=== PATIENT | female | born 1955 | race African-American/Black ===

== ENCOUNTER 2017-04-05 08:34 | Emergency (ER) | payer OTHER ==
--- NOTE | ~2017-04-05 | CT52 ---
[facility] A Service of [facility] RADIOLOGY TEXT RESULTS PATIENT: LUCIA LEAVITT LOCATION: [place] : 59 UNIT #: [id number] AGE: [address]: Kimmie Ulloa SEX: F ORDER DR: [id number] [facility] [address] [place], [place] [address] [id number] E MR#: [id number] Acc #: [id number] NAME: LUCIA LEAVITT : 1955 SEX: F STUDY DATE/TIME: 04/05/2017 9:27 UNIT: [facility] ROOM: STUDY DESCRIPTION: CT Cervical Spine Wo Cont Attending Physician: Kimmie Ulloa P.A.-C. Ordering Physician: Kimmie Ulloa P.A.-C. Primary Care Physician: Ap Khalil M.D. MEDICAL IMAGING REPORT This report is preliminary unless electronic signature is present EXAM cervical spine CT 04/05/2017. INDICATIONS Fell out of bed 1 week ago. Persistent right-sided neck pain since that time. TECHNIQUE Axial images were obtained through the cervical spine without contrast. Multiplanar reformats were obtained. This CT exam was performed with one or more of the following radiation dose reduction techniques: automatic exposure control, adjustment of mA and/or kV according to patient size, and iterative reconstruction. COMPARISON None FINDINGS No fracture or malalignment is seen. No significant disc bulging or herniation identified. There is no central canal or neural foraminal stenosis. IMPRESSION Negative cervical spine CT. Dictated by... Greg Reis Jr., M.D. THIS IS AN ELECTRONICALLY VERIFIED REPORT Greg Reis Jr., M.D. at 04/05/2017 3:38 PM BISIK/max [facility] A Service [facility] RADIOLOGY TEXT RESULTS PATIENT: LUCIA LEAVITT LOCATION: [facility] : 59 UNIT #: [id number] AGE: [address]: Kimmie Ulloa SEX: F ORDER DR: TD: 04/05/2017 13:12 JOB #: [id number] MEDICAL IMAGING REPORT Page 1 of 1 COPY
--- NOTE | ~2017-04-05 | CT55 ---
[facility] A Service of [facility] RADIOLOGY TEXT RESULTS PATIENT: LUCIA LEAVITT LOCATION: [facility] : 59 UNIT #: [id number] AGE: [address]: Kimmie Ulloa SEX: F ORDER DR: [id number] [facility] [address] [place], [place] [address] [id number] E MR#: [id number] Acc #: [id number] NAME: LUCIA LEAVITT : 1955 SEX: F STUDY DATE/TIME: 04/05/2017 10:30 UNIT: [facility] ROOM: STUDY DESCRIPTION: CT Chest W Con Attending Physician: Kimmie Ulloa P.A.-C. Ordering Physician: Kimmie Ulloa P.A.-C. Primary Care Physician: Ap Khalil M.D. MEDICAL IMAGING REPORT This report is preliminary unless electronic signature is present EXAM Chest CT 04/05 INDICATIONS Right-sided pain with generalized weakness since a fall 1 week ago. Right hilar fullness seen on chest x-ray today. CT was recommended. TECHNIQUE Axial images were obtained through the chest following IV contrast administration. Multiplanar reformats were obtained. No comparison chest CT. Comparison made with chest x-ray from the same day. The CT exam was performed with one or more of the following radiation dose reduction techniques: automatic exposure control, adjustment of mA and/or kV according to patient size, and iterative reconstruction. FINDINGS The heart is enlarged. There is no pleural or pericardial effusion. No adenopathy is identified. More specifically, there is no evidence of hilar mass or hilar adenopathy on either side of the chest. There is coronary artery disease. There are granulomatous calcifications in left hilar lymph nodes. There is dependent atelectasis in both lungs. The lungs are otherwise clear. The upper abdomen demonstrates bilateral adrenal gland enlargement, left greater than right. This is presumably secondary to hyperplasia. Comparison with any outside prior studies would be beneficial. Patient has an aortic stent graft. It is only partially seen. There is a right side posterolateral ninth rib fracture, mildly displaced. IMPRESSION 1. There is an acute right posterolateral minimally displaced ninth rib STS. [facility] A Service of [facility] RADIOLOGY TEXT RESULTS PATIENT: LUCIA ELAVITT LOCATION: [place] : 59 UNIT #: [id number] AGE: [address]: Kimmie Ulloa SEX: F ORDER DR: fracture. No pneumothorax. 2. No evidence of hilar mass or adenopathy. 3. The lungs are clear except for some dependent atelectasis. 4. Coronary artery disease and atherosclerotic disease. 5. Bilateral adrenal enlargement presumably due to hyperplasia. Comparison with any outside prior CTs would be beneficial. Dictated by... Greg Reis Jr., M.D. THIS IS AN ELECTRONICALLY VERIFIED REPORT Greg Reis Jr., M.D. at 04/05/2017 3:39 PM [place]ARR[place]/diana TD: 04/05/2017 15:24 JOB #: [id number] MEDICAL IMAGING REPORT Page 1 of 1 COPY
--- NOTE | ~2017-04-05 | CR211 ---
[facility] A Service of [facility] RADIOLOGY TEXT RESULTS PATIENT: LUCIA LEAVITT LOCATION: [place] : 59 UNIT #: [id number] AGE: [address]: Kimmie Ulloa SEX: F ORDER DR: [id number] [facility] [address] [place], [place] [address] [id number] P MR#: [id number] Acc #: [id number] NAME: LUCIA LEAVITT : 1955 SEX: F STUDY DATE/TIME: 04/05/2017 UNIT: [facility] ROOM: STUDY DESCRIPTION: CR Ribs Uni 2 View W PA Ch Rt Attending Physician: Kimmie Ulloa P.A.-C. Ordering Physician: Kimmie Ulloa P.A.-C. Primary Care Physician: Ap Khalil M.D. MEDICAL IMAGING REPORT This report is preliminary unless electronic signature is present EXAM Right rib series with chest 04/05/2017 09:05 hours HISTORY Patient fell 1 week ago with complaint of right rib and shoulder pain. COMPARISON Abdomen series with chest 03/25/2009 FINDINGS Upright chest film demonstrates lower lung volumes than on the prior study. Heart size at the upper limits of normal and the aorta remains tortuous. There are bilateral calcified nodes. The right hilum appears slightly more prominent than on prior chest film 03/25/2009. This could be vessels, however adenopathy or mass cannot be excluded. AP and oblique views of the right ribs demonstrate no rib lesion or rib fracture. There is no pleural effusion or pneumothorax. IMPRESSION 1. No right rib fracture, pleural effusion or pneumothorax. 2. There is mild prominence of the heart increased from 2008 with stable tortuous aorta. 3. There are underlying calcified granulomata. However, question is raised of right hilar fullness in comparison with chest film 03/25/2009. The presence of adenopathy cannot be excluded. Suggest further evaluation with chest CT with contrast if possible. Dictated by... Beth Vidal M.D. [facility] A Service of [facility] RADIOLOGY TEXT RESULTS PATIENT: LUCIA LEAVITT LOCATION: [facility] : 59 UNIT #: [id number] AGE: [address]: Kimmie Ulloa SEX: F ORDER DR: THIS IS AN ELECTRONICALLY VERIFIED REPORT Beth Vidal M.D. at 04/05/2017 2:31 PM BRIAN/diana TD: 04/05/2017 09:45 JOB #: [id number] MEDICAL IMAGING REPORT Page 1 of 1 COPY
--- NOTE | ~2017-04-05 | CR94 ---
[facility] A Service of [facility] RADIOLOGY TEXT RESULTS PATIENT: LUCIA LEAVITT LOCATION: [facility] : 59 UNIT #: [id number] AGE: [address]: Kimmie Ulloa SEX: F ORDER DR: [id number] [facility] [address] [place], [place] [address] [id number] E MR#: [id number] Acc #: [id number] NAME: LUCIA LEAVITT : 1955 SEX: F STUDY DATE/TIME: 04/05/2017 09:09 UNIT: [facility] ROOM: STUDY DESCRIPTION: CR Elbow Min 3 Views Rt Attending Physician: Kimmie Ulloa P.A.-C. Ordering Physician: Kimmie Ulloa P.A.-C. Primary Care Physician: Ap Khalil M.D. MEDICAL IMAGING REPORT This report is preliminary unless electronic signature is present EXAM Right elbow 3 views 04/05/2017 0909 hours HISTORY Patient fell 1 week ago with elbow pain for 1 week. COMPARISON None. FINDINGS AP, lateral and oblique views demonstrate no joint effusion or fracture. IMPRESSION Negative right elbow. Dictated by... Beth Vidal M.D. THIS IS AN ELECTRONICALLY VERIFIED REPORT Beth Vidal M.D. at 04/05/2017 2:31 PM BRIAN/liliana TD: 04/05/2017 10:00 JOB #: [id number] MEDICAL IMAGING REPORT Page 1 of 1 COPY
--- NOTE | ~2017-04-05 | CT71 ---
[facility] A Service of [facility] RADIOLOGY TEXT RESULTS PATIENT: LUCIA LEAVITT LOCATION: [facility] : 59 UNIT #: [id number] AGE: [address]: Kimmie Ulloa SEX: F ORDER DR: [id number] [facility] [address] [place], [place] [address] [id number] E MR#: [id number] Acc #: [id number] NAME: LUCIA LEAVITT : 1955 SEX: F STUDY DATE/TIME: 04/05/2017 9:27 UNIT: [facility] ROOM: STUDY DESCRIPTION: CT Head Wo Contrast Attending Physician: Kimmie Ulloa P.A.-C. Ordering Physician: Kimmie Ulloa P.A.-C. Primary Care Physician: Ap Khalil M.D. MEDICAL IMAGING REPORT This report is preliminary unless electronic signature is present EXAM Head CT no contrast 04/05/2017 PROCEDURE Axial unenhanced head CT. This CT exam was performed with one or more of the following radiation dose reduction techniques: automatic exposure control, adjustment of mA and/or kV according to patient size, and iterative reconstruction. COMPARISON None. CLINICAL HISTORY Persistent headache 1 week after fall out of bed. FINDINGS The skull base and calvarium are remarkable only for degenerative change in the left temporomandibular joint. No acute bony abnormality is seen. There is no intracranial hemorrhage. There is no mass or hydrocephalus or extraaxial fluid collection. There is a focus of hypodensity in the right frontal region about 1.5 x 2 cm in size. It likely represents age indeterminate encephalomalacia, though a subacute ischemic lesion could appear similar. Brain parenchymal density is otherwise normal. There is no hydrocephalus or extraaxial fluid collection and the extracranial soft tissues are normal. IMPRESSION No intracranial hemorrhage, and no compelling evidence of acute intracranial abnormality. There is a right frontal cortical area of hypodensity. This is probably mildly atypical encephalomalacia, though an [facility] A Service of [facility] RADIOLOGY TEXT RESULTS PATIENT: LUCIA LEAVITT LOCATION: [facility] : 59 UNIT #: [id number] AGE: [address]: Kimmie Ulloa SEX: F ORDER DR: rianna indeterminate ischemic lesion can have a similar appearance. Followup MRI with and without contrast would be helpful for further evaluation. The exam is otherwise only remarkable for degenerative change in the left temporomandibular joint and is otherwise normal. Dictated by... Abdoulaye Tatum M.D. THIS IS AN ELECTRONICALLY VERIFIED REPORT Abdoulaye Tatum M.D. at 04/08/2017 2:20 PM KAYLAN/deedee TD: 04/05/2017 12:59 JOB #: [id number] MEDICAL IMAGING REPORT Page 1 of 1 COPY
--- NOTE | ~2017-04-05 | CR151 ---
[facility] A Service of [facility] RADIOLOGY TEXT RESULTS PATIENT: LUCIA LEAVITT LOCATION: [facility] : 59 UNIT #: [id number] AGE: [address]: Kimmie Ulloa SEX: F ORDER DR: [id number] [facility] [address] [place], [place] [address] [id number] P MR#: [id number] Acc #: [id number] NAME: LUCIA LEAVITT : 1955 SEX: F STUDY DATE/TIME: 04/05/2017 UNIT: [facility] ROOM: STUDY DESCRIPTION: CR Hip Min 2 Views Rt Attending Physician: Kimmie Ulloa P.A.-C. Ordering Physician: Kimmie Ulloa P.A.-C. Primary Care Physician: Ap Khalil M.D. MEDICAL IMAGING REPORT This report is preliminary unless electronic signature is present EXAM Right hip 04/05/2017 0912 hours HISTORY Patient fell 1 week ago with complaint of right hip pain since fall. COMPARISON None. FINDINGS AP pelvis and frog lateral view right hip demonstrate normal joint space. There is no hip or pelvic fracture. Vascular stents are present within the aorta and both common iliac arteries. There is a sclerotic density in the left iliac bone laterally similar to 2009. There is question of a sclerotic density at the mid sacrum just to the left of midline also faintly seen on prior exam. These are stable from 2008 and likely represent benign bone islands. IMPRESSION 1. No pelvic or hip fracture. 2. Vascular stents in the aorta and iliac vessels. 3. There are sclerotic densities at the sacrum and the left iliac bone seen on plain films 03/25/2009. Their stability suggests these are likely benign bone islands. Dictated by... Beth Vidal M.D. THIS IS AN ELECTRONICALLY VERIFIED REPORT Beth Vidal M.D. at 04/05/2017 2:31 PM SMM/diana TD: 04/05/2017 09:49 [facility] A Service of [facility] RADIOLOGY TEXT RESULTS PATIENT: LUCIA LEAVITT LOCATION: [facility] : 59 UNIT #: [id number] AGE: [address]: Kimmie Ulloa SEX: F ORDER DR: JEREMIAS #: [id number] MEDICAL IMAGING REPORT Page 1 of 1 COPY
--- NOTE | ~2017-04-05 | CR230 ---
[facility] A Service of [facility] RADIOLOGY TEXT RESULTS PATIENT: LUCIA LEAVITT LOCATION: [facility] : 59 UNIT #: [id number] AGE: [address]: Kimmie Ulloa SEX: F ORDER DR: [id number] [facility] [address] [place], [place] [address] [id number] P MR#: [id number] Acc #: [id number] NAME: LUCIA LEAVITT : 1955 SEX: F STUDY DATE/TIME: 04/05/2017 09:03 UNIT: [place] ROOM: STUDY DESCRIPTION: CR Shoulder Min 2 View Rt Attending Physician: Kimmie Ulloa P.A.-C. Ordering Physician: Kimmie Ulloa P.A.-C. Primary Care Physician: Ap Khalil M.D. MEDICAL IMAGING REPORT This report is preliminary unless electronic signature is present EXAM Right shoulder 04/05/2017 0903 hours HISTORY 61-year-old woman who fell 1 week ago complaining of right shoulder pain since fall. COMPARISON None. FINDINGS AP views in internal-external rotation and a scapula Y-view demonstrate normal bone density and range of motion. There is no fracture or dislocation. Question of right hilar prominence is raised. IMPRESSION 1. Negative right shoulder. 2. The right upper lung and the right upper ribs are normal. Question of right hilar prominence is raised. STAT * RESULT Dictated by... Beth Vidal M.D. THIS IS AN ELECTRONICALLY VERIFIED REPORT Beth Vidal M.D. at 04/05/2017 2:31 PM BRIAN/liliana TD: 04/05/2017 09:38 [facility] A Service of [facility] RADIOLOGY TEXT RESULTS PATIENT: LUCIA LEAVITT LOCATION: [place] : 59 UNIT #: [id number] AGE: [address]: Kimmie Ulloa SEX: F ORDER DR: JEREMIAS #: [id number] MEDICAL IMAGING REPORT Page 1 of 1 COPY
[2017-04-05 17:01] LABS: POC - CREATININE 1.08 mg/dL (0.44-1.03); POC - GFR >60.0 mL/min (>60)
== END 2017-04-05 12:01 | disposition home or self-care (01) ==
LOC: CFTX 08:34 → CED 08:34 → CFTX 09:46
PROVIDERS: Physician Assistant
DX: S13.4XXA Sprain of ligaments of cervical spine, initial encounter (principal); I10 Essential (primary) hypertension; K21.9 Gastro-esophageal reflux disease without esophagitis; F32.9 Major depressive disorder, single episode, unspecified; F17.210 Nicotine dependence, cigarettes, uncomplicated; W06.XXXA Fall from bed, initial encounter; Y92.009 Unspecified place in unspecified non-institutional (private) residence as the place of occurrence of the external cause
CPT/HCPCS: 36415; 70450; 71101; 71260; 72125; 73030; 73080; 73502; 82565; 99284; Q9967